=== PATIENT | female | born 1955 | race African-American/Black ===

== ENCOUNTER 2021-05-09 21:53 | Inpatient (IN) | payer MEDICARE, MEDICAID ==
[~2021-05-09 21:53] MED LIST: Heparin 1,000 UNITS/ML VIAL ONE
[2021-05-10 02:43] VITALS: BMI 39.4
[2021-05-10] MEDS ORDERED: Ondansetron PF 4 MG/2 ML Vial IVP PRN (03:35)
[2021-05-10] MEDS ORDERED: hydrALAZINE 20 MG/ML VIAL SLOW IVP PRN (03:42)
[2021-05-10] MEDS ORDERED: Morphine 4 MG/ML VIAL SLOW IVP PRN (03:43)
[2021-05-10] MEDS ORDERED: Vancomycin 1 GM in Premix Bag 1 BAG IVPB SCH (04:15)
[2021-05-10] MEDS ORDERED: Cefepime 2 GM in Sodium Chloride 0.9% 100 ML IVPB SCH (04:15)
[2021-05-10] MEDS: Nicotine 21 MG PATCH TD SCH (04:25)
[2021-05-10] MEDS: Sodium Chloride 0.9% 1,000 ML IV SCH ×3 (04:25→23:54)
[2021-05-10] MEDS: Morphine 4 MG/ML VIAL SLOW IVP PRN ×7 (04:26→20:20)
[2021-05-10 05:23] LABS: INR-International Normal Ratio 1.1; Prothrombin Time 14.5 sec (12.0-14.7)
[2021-05-10 05:25] LABS: Band 10 % (5-11); Hypochromia SLIGHT = 6-15 cells (100X) (0-5/hpf); Lymphocytes 9 % (21-51); MDiff Complete? YES; Mean Corpuscular HGB CONC 28.7 g/dL (32.0-36.0); Mean Corpuscular Hemoglobin 23.3 pg (27.0-31.0); Mean Platelet Volume 8.3 fL (7.4-10.4); Monocytes 4 % (0-10); Neutrophil 77 % (42-75); Platelet Count 204 thou/uL (130-400); Platelet Morphology Comment Appears Adequate; Red Blood Cell (RBC) Count 3.45 mill/uL (4.20-5.40); White Blood Cell (WBC) Count 25.9 thou/uL (4.8-10.8)
[2021-05-10 05:28] LABS: Hemoglobin A1c 5.1 % (4.0-6.0)
[2021-05-10 05:51] LABS: ALT (SGPT) Less than 7 U/L (8-55); AST (SGOT) 14 U/L (5-34); Albumin 3.1 g/dL (3.4-4.8); Alkaline Phosphatase 63 U/L (40-110); Anion Gap 11 mmol/L (10-20); BUN (Urea Nitrogen) 14 mg/dL (9.8-20.1); Bilirubin, Total 0.3 mg/dL (0.2-1.2); CRP (Inflammatory) 16.43 mg/dL (= or < 0.5); Calc. Creatinine Clearance 117 mL/min (70-130); Calcium 8.9 mg/dL (7.8-10.44); Carbon Dioxide 28 mmol/L (23-31); Cardiac Risk 2.1 (Less than 4.5); Chloride 106 mmol/L (98-107); Cholesterol 150 mg/dl (< 200 Desired); Globulin 3.3 g/dL (2.4-3.5); Glucose 86 mg/dL (80-115); HDL Cholesterol 72 mg/dL (>60 Neg Risk); LDL Cholesterol, Calculated 68 mg/dL; Potassium 3.5 mmol/L (3.5-5.1); Protein, Total 6.4 g/dL (5.8-8.1); Sodium 141 mmol/L (136-145); Triglycerides 49 mg/dL (Less than 150)
[2021-05-10] MEDS: Famotidine/PF 20 mg/2ml Vial SLOW IVP SCH ×2 (08:14→20:13)
[2021-05-10] MEDS ORDERED: Diazepam 5 MG TAB PO PRN (08:22)
[2021-05-10] MEDS ORDERED: FLU VACC QS2021-22(65YR UP)/PF 240 MCG/0.7 ML SYRINGE IM ONE (09:00)
[2021-05-10] MEDS ORDERED: Magnevist 469MG/ML 20 ML VIAL ONE (11:45)
[2021-05-10] MEDS ORDERED: Ibuprofen 800 MG TAB PO PRN (14:50)
[2021-05-10] MEDS: Gabapentin 300 MG CAP PO SCH ×2 (15:18→20:13)
[2021-05-10] MEDS: metroNIDAZOLE 500 MG in Premix Bag 1 BAG IVPB SCH ×2 (15:18→23:52)
[2021-05-10] MEDS: HYDROcodone/Acetaminophen 7.5/325 mg Tablet PO PRN (16:50)
[2021-05-10] MEDS: Cefepime 2 GM in Sodium Chloride 0.9% 100 ML IVPB SCH (16:51)
[2021-05-10] MEDS: VANCOMYCIN 2 GRAM/400 ML BAG 2 GM in Premix Bag 1 BAG IVPB SCH (18:48)
[2021-05-10] MEDS: tiZANidine HCl 4 MG TAB PO SCH (20:14)
[2021-05-11] MEDS: HYDROcodone/Acetaminophen 7.5/325 mg Tablet PO PRN ×3 (03:48→20:03)
[2021-05-11] MEDS: Nicotine 21 MG PATCH TD SCH (03:51)
[2021-05-11] MEDS: Cefepime 2 GM in Sodium Chloride 0.9% 100 ML IVPB SCH ×2 (04:35→17:44)
[2021-05-11] MEDS: Morphine 4 MG/ML VIAL SLOW IVP PRN ×3 (06:50→14:34)
[2021-05-11] MEDS: metroNIDAZOLE 500 MG in Premix Bag 1 BAG IVPB SCH ×3 (08:00→23:33)
[2021-05-11] MEDS: tiZANidine HCl 4 MG TAB PO SCH ×3 (08:02→20:08)
[2021-05-11] MEDS: Amlodipine 5 MG TAB PO SCH (08:02)
[2021-05-11] MEDS: Gabapentin 300 MG CAP PO SCH ×3 (08:02→20:00)
[2021-05-11] MEDS: Famotidine/PF 20 mg/2ml Vial SLOW IVP SCH ×2 (08:03→20:03)
[2021-05-11] MEDS ORDERED: Bisacodyl 5 MG TAB PO PRN (10:38)
[2021-05-11] MEDS ORDERED: Polyethylene Glycol 3350 17 GM Packet PO PRN (10:38)
[2021-05-11] MEDS ORDERED: Milk Of Magnesia 30 ML UDCUP PO PRN (10:38)
[2021-05-11] MEDS ORDERED: Promethazine HCl 12.5 MG in Sodium Chloride 0.9% 50 ML IVPB SCH (10:45)
[2021-05-11] MEDS ORDERED: Enoxaparin Sodium 40 MG/0.4 ML SYRINGE SC SCH (10:45)
[2021-05-11] MEDS ORDERED: Docusate 100 MG CAP PO SCH (11:00)
[2021-05-11] MEDS: Docusate 100 MG CAP PO SCH (11:04)
[2021-05-11] MEDS: Hydroxychloroquine Sulfate 200 MG TAB PO SCH (11:04)
[2021-05-11] MEDS: Senokot S 8.6-50 MG TAB PO SCH ×2 (11:04→20:03)
[2021-05-11] MEDS: Ibuprofen 800 MG TAB PO PRN (18:22)
[2021-05-11] MEDS: VANCOMYCIN 2 GRAM/400 ML BAG 2 GM in Premix Bag 1 BAG IVPB SCH (18:22)
[2021-05-11 18:24] LABS: Vancomycin, Trough 15.1 ug/mL
[2021-05-11] MEDS: Promethazine 25 MG TAB PO PRN (20:01)
[2021-05-11] MEDS: Sodium Chloride 0.9% 1,000 ML IV SCH (20:38)
[2021-05-12] MEDS: Nicotine 21 MG PATCH TD SCH ×2 (04:57→05:07)
[2021-05-12] MEDS: Cefepime 2 GM in Sodium Chloride 0.9% 100 ML IVPB SCH ×2 (04:57→05:07)
[2021-05-12] MEDS: Morphine 4 MG/ML VIAL SLOW IVP PRN ×2 (05:35→10:32)
[2021-05-12] MEDS: Promethazine 25 MG TAB PO PRN (05:40)
[2021-05-12] MEDS: Gabapentin 300 MG CAP PO SCH ×3 (08:21→20:15)
[2021-05-12] MEDS: Famotidine/PF 20 mg/2ml Vial SLOW IVP SCH ×2 (08:21→20:16)
[2021-05-12] MEDS: Docusate 100 MG CAP PO SCH ×2 (08:22→20:16)
[2021-05-12] MEDS: Senokot S 8.6-50 MG TAB PO SCH ×2 (08:22→20:16)
[2021-05-12] MEDS: tiZANidine HCl 4 MG TAB PO SCH ×2 (08:22→20:16)
[2021-05-12] MEDS: Amlodipine 5 MG TAB PO SCH (08:22)
[2021-05-12] MEDS: Hydroxychloroquine Sulfate 200 MG TAB PO SCH (08:22)
[2021-05-12] MEDS: Enoxaparin Sodium 40 MG/0.4 ML SYRINGE SC SCH (08:26)
[2021-05-12] MEDS: Sodium Chloride 0.9% 1,000 ML IV SCH (09:32)
[2021-05-12] MEDS: metroNIDAZOLE 500 MG in Premix Bag 1 BAG IVPB SCH ×2 (09:33→15:42)
[2021-05-12 11:38] LABS: Anion Gap 10 mmol/L (10-20); BUN (Urea Nitrogen) 12 mg/dL (9.8-20.1); Calc. Creatinine Clearance 132 mL/min (70-130); Carbon Dioxide 25 mmol/L (23-31); Chloride 106 mmol/L (98-107); Glucose 79 mg/dL (80-115); Potassium 3.5 mmol/L (3.5-5.1); Sodium 137 mmol/L (136-145)
[2021-05-12 11:57] LABS: Anisocytosis SLIGHT = 6-15 cells (100X) (0-5/hpf); Band 4 % (5-11); Eosinophils 3 % (0-10); Hemoglobin 7.1 g/dL (12.0-16.0); Lymphocytes 16 % (21-51); MDiff Complete? YES; Mean Corpuscular HGB CONC 28.7 g/dL (32.0-36.0); Mean Corpuscular Hemoglobin 23.1 pg (27.0-31.0); Mean Corpuscular Volume 80.7 fL (78.0-98.0); Mean Platelet Volume 8.8 fL (7.4-10.4); Monocytes 10 % (0-10); Neutrophil 67 % (42-75); Platelet Count 163 thou/uL (130-400); RBC Distribution Width 18.4 % (11.5-14.5); Red Blood Cell (RBC) Count 3.07 mill/uL (4.20-5.40); White Blood Cell (WBC) Count 11.3 thou/uL (4.8-10.8)
[2021-05-12] MEDS: HYDROcodone/Acetaminophen 7.5/325 mg Tablet PO PRN (14:12)
[2021-05-12] MEDS: VANCOMYCIN 2 GRAM/400 ML BAG 2 GM in Premix Bag 1 BAG IVPB SCH (17:33)
[2021-05-13] MEDS: metroNIDAZOLE 500 MG in Premix Bag 1 BAG IVPB SCH ×3 (00:13→15:15)
[2021-05-13] MEDS: HYDROcodone/Acetaminophen 7.5/325 mg Tablet PO PRN ×3 (01:51→16:38)
[2021-05-13] MEDS: Sodium Chloride 0.9% 1,000 ML IV SCH ×2 (01:52→15:16)
[2021-05-13] MEDS: Morphine 4 MG/ML VIAL SLOW IVP PRN ×2 (03:18→12:10)
[2021-05-13] MEDS: Cefepime 2 GM in Sodium Chloride 0.9% 100 ML IVPB SCH ×2 (06:22→16:40)
[2021-05-13] MEDS: Saccharomyces boulardii 250 MG CAP PO SCH (09:06)
[2021-05-13] MEDS: Gabapentin 300 MG CAP PO SCH ×3 (09:06→20:49)
[2021-05-13] MEDS: Amlodipine 5 MG TAB PO SCH (09:06)
[2021-05-13] MEDS: tiZANidine HCl 4 MG TAB PO SCH ×2 (09:07→20:49)
[2021-05-13] MEDS: Enoxaparin Sodium 40 MG/0.4 ML SYRINGE SC SCH (09:07)
[2021-05-13] MEDS: Famotidine/PF 20 mg/2ml Vial SLOW IVP SCH ×2 (09:23→20:51)
[2021-05-13] MEDS: Senokot S 8.6-50 MG TAB PO SCH ×2 (10:13→20:50)
[2021-05-13] MEDS: Docusate 100 MG CAP PO SCH ×2 (10:13→20:50)
[2021-05-13] MEDS: Hydroxychloroquine Sulfate 200 MG TAB PO SCH (13:50)
[2021-05-13] MEDS: Ibuprofen 800 MG TAB PO PRN (13:54)
[2021-05-13 17:28] LABS: Calc. Creatinine Clearance 138 mL/min (70-130)
[2021-05-13 17:29] LABS: Vancomycin, Trough 13.9 ug/mL
[2021-05-13] MEDS: diphenhydrAMINE 25 MG CAP PO PRN (18:05)
[2021-05-13] MEDS: Vancomycin 1 GM in Premix Bag 1 BAG IVPB SCH (18:11)
[2021-05-13] MEDS: Promethazine 25 MG TAB PO PRN (21:16)
[2021-05-14] MEDS: metroNIDAZOLE 500 MG in Premix Bag 1 BAG IVPB SCH ×4 (00:19→23:41)
[2021-05-14] MEDS: Sodium Chloride 0.9% 1,000 ML IV SCH ×2 (01:30→15:29)
[2021-05-14] MEDS: Morphine 4 MG/ML VIAL SLOW IVP PRN ×4 (01:47→19:51)
[2021-05-14] MEDS: HYDROcodone/Acetaminophen 7.5/325 mg Tablet PO PRN (06:08)
[2021-05-14] MEDS: Promethazine 25 MG TAB PO PRN ×2 (06:14→23:41)
[2021-05-14] MEDS: Nicotine 21 MG PATCH TD SCH (06:17)
[2021-05-14 06:29] LABS: Hemoglobin 7.6 g/dL (12.0-16.0); Mean Corpuscular HGB CONC 30.1 g/dL (32.0-36.0); Mean Corpuscular Hemoglobin 23.8 pg (27.0-31.0); Mean Corpuscular Volume 79.2 fL (78.0-98.0); Mean Platelet Volume 9.4 fL (7.4-10.4); Platelet Count 215 thou/uL (130-400); RBC Distribution Width 18.6 % (11.5-14.5); Red Blood Cell (RBC) Count 3.18 mill/uL (4.20-5.40); White Blood Cell (WBC) Count 11.4 thou/uL (4.8-10.8)
[2021-05-14 06:42] LABS: Anion Gap 9 mmol/L (10-20); BUN (Urea Nitrogen) 6 mg/dL (9.8-20.1); Calc. Creatinine Clearance 152 mL/min (70-130); Calcium 8.4 mg/dL (7.8-10.44); Carbon Dioxide 27 mmol/L (23-31); Chloride 105 mmol/L (98-107); Glucose 82 mg/dL (80-115); Potassium 3.3 mmol/L (3.5-5.1); Sodium 138 mmol/L (136-145)
[2021-05-14] MEDS: Cefepime 2 GM in Sodium Chloride 0.9% 100 ML IVPB SCH ×2 (06:43→17:09)
[2021-05-14] MEDS: Vancomycin 1 GM in Premix Bag 1 BAG IVPB SCH ×2 (07:23→18:09)
[2021-05-14] MEDS: diphenhydrAMINE 25 MG CAP PO PRN (07:23)
[2021-05-14 08:44] LABS: Band 4 % (5-11); Eosinophils 3 % (0-10); Hypochromia SLIGHT = 6-15 cells (100X) (0-5/hpf); Lymphocytes 19 % (21-51); MDiff Complete? YES; Microcytosis SLIGHT = 6-15 cells (100X) (0-5/hpf); Monocytes 10 % (0-10); Neutrophil 62 % (42-75); Platelet Morphology Comment Appears Adequate; Polychromasia SLIGHT = 2-3 cells (100X) (0-2/hpf); Reactive Lymphocytes 1 % (0-10)
[2021-05-14] MEDS: Gabapentin 300 MG CAP PO SCH ×4 (09:25→19:53)
[2021-05-14] MEDS: Enoxaparin Sodium 40 MG/0.4 ML SYRINGE SC SCH (09:25)
[2021-05-14] MEDS: tiZANidine HCl 4 MG TAB PO SCH ×2 (09:26→19:52)
[2021-05-14] MEDS: Amlodipine 5 MG TAB PO SCH (09:26)
[2021-05-14] MEDS: Saccharomyces boulardii 250 MG CAP PO SCH (09:26)
[2021-05-14] MEDS: Famotidine/PF 20 mg/2ml Vial SLOW IVP SCH ×2 (09:27→19:52)
[2021-05-14] MEDS: Hydroxychloroquine Sulfate 200 MG TAB PO SCH (09:31)
[2021-05-14] MEDS: Docusate 100 MG CAP PO SCH ×2 (09:35→19:52)
[2021-05-14] MEDS: Senokot S 8.6-50 MG TAB PO SCH ×2 (09:35→19:52)
[2021-05-14 10:09] LABS: Iron Binding Capacity, Total 244 mcg/dL (265-497)
[2021-05-14 10:10] LABS: Iron 26 ug/dL (50-170)
[2021-05-15] MEDS: Sodium Chloride 0.9% 1,000 ML IV SCH (03:45)
[2021-05-15] MEDS: Nicotine 21 MG PATCH TD SCH (05:13)
[2021-05-15] MEDS: Cefepime 2 GM in Sodium Chloride 0.9% 100 ML IVPB SCH ×2 (05:14→16:56)
[2021-05-15 05:38] LABS: Vancomycin, Trough 14.4 ug/mL
[2021-05-15] MEDS: Vancomycin 1 GM in Premix Bag 1 BAG IVPB SCH ×2 (05:57→17:02)
[2021-05-15] MEDS: Promethazine 25 MG TAB PO PRN (06:07)
[2021-05-15] MEDS ORDERED: Potassium Chloride 20 MEQ TAB PO SCH (07:45)
[2021-05-15] MEDS: Famotidine/PF 20 mg/2ml Vial SLOW IVP SCH ×2 (09:12→20:37)
[2021-05-15] MEDS: Senokot S 8.6-50 MG TAB PO SCH ×2 (09:12→20:36)
[2021-05-15] MEDS: tiZANidine HCl 4 MG TAB PO SCH ×2 (09:12→20:36)
[2021-05-15] MEDS: Docusate 100 MG CAP PO SCH ×2 (09:13→20:36)
[2021-05-15] MEDS: Gabapentin 300 MG CAP PO SCH ×3 (09:13→20:36)
[2021-05-15] MEDS: HYDROcodone/Acetaminophen 7.5/325 mg Tablet PO PRN ×2 (09:14→15:17)
[2021-05-15] MEDS: Saccharomyces boulardii 250 MG CAP PO SCH (09:15)
[2021-05-15] MEDS: metroNIDAZOLE 500 MG in Premix Bag 1 BAG IVPB SCH (09:15)
[2021-05-15] MEDS: Amlodipine 5 MG TAB PO SCH (09:16)
[2021-05-15] MEDS: Enoxaparin Sodium 40 MG/0.4 ML SYRINGE SC SCH (09:16)
[2021-05-15] MEDS: Hydroxychloroquine Sulfate 200 MG TAB PO SCH (10:31)
[2021-05-15] MEDS: diphenhydrAMINE 25 MG CAP PO PRN (17:02)
[2021-05-15] MEDS: Chloraseptic Spray 180 ml Bottle PO PRN (23:01)
[2021-05-16] MEDS: Nicotine 21 MG PATCH TD SCH (00:01)
[2021-05-16] MEDS: Morphine 4 MG/ML VIAL SLOW IVP PRN ×2 (01:32→15:54)
[2021-05-16] MEDS: Cefepime 2 GM in Sodium Chloride 0.9% 100 ML IVPB SCH ×2 (03:55→16:24)
[2021-05-16] MEDS: Vancomycin 1 GM in Premix Bag 1 BAG IVPB SCH (05:34)
[2021-05-16 06:17] LABS: #Basophils 0.1 thou/uL (0.0-0.2); #Eosinphils 0.5 thou/uL (0.0-0.7); #Neutrophils 7.7 thou/uL (1.40-6.50); %Basophils 0.8 % (0.0-1.0); %Eosinophils 4.3 % (0.0-10.0); %Lymphocytes 17.8 % (21.0-51.0); %Monocytes 8.8 % (0.0-10.0); %Neutrophils 68.3 % (42.0-75.0); Hemoglobin 7.6 g/dL (12.0-16.0); Mean Corpuscular HGB CONC 30.3 g/dL (32.0-36.0); Mean Corpuscular Hemoglobin 23.7 pg (27.0-31.0); Mean Corpuscular Volume 78.2 fL (78.0-98.0); Mean Platelet Volume 8.2 fL (7.4-10.4); Platelet Count 343 thou/uL (130-400); RBC Distribution Width 19.5 % (11.5-14.5); Red Blood Cell (RBC) Count 3.21 mill/uL (4.20-5.40); White Blood Cell (WBC) Count 11.2 thou/uL (4.8-10.8)
[2021-05-16 06:30] LABS: Anion Gap 13 mmol/L (10-20); BUN (Urea Nitrogen) 6 mg/dL (9.8-20.1); Calc. Creatinine Clearance 142 mL/min (70-130); Carbon Dioxide 25 mmol/L (23-31); Chloride 106 mmol/L (98-107); Glucose 84 mg/dL (80-115); Potassium 3.5 mmol/L (3.5-5.1); Sodium 140 mmol/L (136-145)
[2021-05-16 06:31] LABS: Calcium 8.6 mg/dL (7.8-10.44)
[2021-05-16] MEDS: Saccharomyces boulardii 250 MG CAP PO SCH (08:23)
[2021-05-16] MEDS: Promethazine 25 MG TAB PO PRN (08:23)
[2021-05-16] MEDS: Senokot S 8.6-50 MG TAB PO SCH ×2 (08:23→20:41)
[2021-05-16] MEDS: tiZANidine HCl 4 MG TAB PO SCH ×2 (08:23→20:41)
[2021-05-16] MEDS: Gabapentin 300 MG CAP PO SCH ×3 (08:23→20:41)
[2021-05-16] MEDS: Enoxaparin Sodium 40 MG/0.4 ML SYRINGE SC SCH (08:24)
[2021-05-16] MEDS: Famotidine/PF 20 mg/2ml Vial SLOW IVP SCH ×2 (08:24→20:40)
[2021-05-16] MEDS: Docusate 100 MG CAP PO SCH ×2 (08:24→20:42)
[2021-05-16] MEDS: Hydroxychloroquine Sulfate 200 MG TAB PO SCH (08:24)
[2021-05-16] MEDS: Amlodipine 5 MG TAB PO SCH ×2 (08:24→18:21)
[2021-05-16] MEDS: Chloraseptic Spray 180 ml Bottle PO PRN (08:29)
[2021-05-16] MEDS: HYDROcodone/Acetaminophen 7.5/325 mg Tablet PO PRN (12:56)
[2021-05-16 17:15] LABS: Vancomycin, Trough 14.8 ug/mL
[2021-05-16] MEDS: VANCOMYCIN 1.25 GM/250 ML BAG 1.25 GM in Premix Bag 1 BAG IVPB SCH (18:04)
[2021-05-16] MEDS: ALPRAZolam 0.25 MG TAB PO PRN (20:40)
[2021-05-16 23:43] LABS: SARS-CoV-2 PCR by NAA Not Detected (NotDetected)
[2021-05-17] MEDS: Nicotine 21 MG PATCH TD SCH (04:09)
[2021-05-17] MEDS: Cefepime 2 GM in Sodium Chloride 0.9% 100 ML IVPB SCH ×2 (04:36→17:26)
[2021-05-17] MEDS: HYDROcodone/Acetaminophen 7.5/325 mg Tablet PO PRN ×2 (04:46→15:47)
[2021-05-17] MEDS: VANCOMYCIN 1.25 GM/250 ML BAG 1.25 GM in Premix Bag 1 BAG IVPB SCH ×2 (05:33→18:11)
[2021-05-17] MEDS: Promethazine 25 MG TAB PO PRN (08:07)
[2021-05-17] MEDS: Gabapentin 300 MG CAP PO SCH ×3 (09:45→20:59)
[2021-05-17] MEDS: Enoxaparin Sodium 40 MG/0.4 ML SYRINGE SC SCH (09:46)
[2021-05-17] MEDS: Docusate 100 MG CAP PO SCH ×2 (09:46→20:59)
[2021-05-17] MEDS: tiZANidine HCl 4 MG TAB PO SCH ×2 (09:47→20:58)
[2021-05-17] MEDS: Amlodipine 5 MG TAB PO SCH (09:47)
[2021-05-17] MEDS: Saccharomyces boulardii 250 MG CAP PO SCH (09:47)
[2021-05-17] MEDS: Senokot S 8.6-50 MG TAB PO SCH ×2 (09:47→20:59)
[2021-05-17] MEDS: Famotidine/PF 20 mg/2ml Vial SLOW IVP SCH ×2 (09:48→20:58)
[2021-05-17] MEDS: Hydroxychloroquine Sulfate 200 MG TAB PO SCH (09:48)
[2021-05-17] MEDS: Ibuprofen 800 MG TAB PO PRN (09:54)
[2021-05-17] MEDS: diphenhydrAMINE 25 MG CAP PO PRN (17:34)
[2021-05-17] MEDS: Acetaminophen/Codeine 30-300mg Tablet PO PRN (18:53)
[2021-05-17] MEDS: ALPRAZolam 0.25 MG TAB PO PRN (21:05)
[2021-05-18] MEDS: Acetaminophen/Codeine 30-300mg Tablet PO PRN (00:58)
[2021-05-18] MEDS: HYDROcodone/Acetaminophen 7.5/325 mg Tablet PO PRN ×3 (01:02→20:57)
[2021-05-18 04:14] LABS: Vancomycin, Trough 26.8 ug/mL
[2021-05-18] MEDS: Nicotine 21 MG PATCH TD SCH (04:45)
[2021-05-18] MEDS: Cefepime 2 GM in Sodium Chloride 0.9% 100 ML IVPB SCH ×2 (04:53→17:27)
[2021-05-18] MEDS: Vancomycin 1 GM in Premix Bag 1 BAG IVPB SCH ×2 (05:26→18:03)
[2021-05-18] MEDS: Hydroxychloroquine Sulfate 200 MG TAB PO SCH (09:01)
[2021-05-18] MEDS: tiZANidine HCl 4 MG TAB PO SCH ×2 (09:01→20:45)
[2021-05-18] MEDS: Saccharomyces boulardii 250 MG CAP PO SCH (09:01)
[2021-05-18] MEDS: Famotidine/PF 20 mg/2ml Vial SLOW IVP SCH ×2 (09:01→20:45)
[2021-05-18] MEDS: Amlodipine 5 MG TAB PO SCH (09:01)
[2021-05-18] MEDS: Enoxaparin Sodium 40 MG/0.4 ML SYRINGE SC SCH (09:01)
[2021-05-18] MEDS: Gabapentin 300 MG CAP PO SCH ×3 (09:02→20:45)
[2021-05-18] MEDS: Docusate 100 MG CAP PO SCH ×2 (09:02→20:45)
[2021-05-18] MEDS: Senokot S 8.6-50 MG TAB PO SCH ×2 (09:02→20:45)
[2021-05-18] MEDS: diphenhydrAMINE 25 MG CAP PO PRN (12:02)
[2021-05-18] MEDS: Promethazine 25 MG TAB PO PRN (12:02)
[2021-05-18] MEDS: Ibuprofen 800 MG TAB PO PRN (14:12)
[2021-05-18] MEDS: ALPRAZolam 0.25 MG TAB PO PRN (20:50)
[2021-05-19] MEDS: HYDROcodone/Acetaminophen 7.5/325 mg Tablet PO PRN ×3 (02:21→20:59)
[2021-05-19] MEDS: Nicotine 21 MG PATCH TD SCH (04:32)
[2021-05-19] MEDS: Cefepime 2 GM in Sodium Chloride 0.9% 100 ML IVPB SCH ×2 (04:32→17:30)
[2021-05-19] MEDS: Vancomycin 1 GM in Premix Bag 1 BAG IVPB SCH ×2 (05:51→17:41)
[2021-05-19] MEDS: diphenhydrAMINE 25 MG CAP PO PRN (05:57)
[2021-05-19] MEDS: tiZANidine HCl 4 MG TAB PO SCH ×2 (09:01→20:55)
[2021-05-19] MEDS: Gabapentin 300 MG CAP PO SCH ×3 (09:01→20:56)
[2021-05-19] MEDS: Hydroxychloroquine Sulfate 200 MG TAB PO SCH (09:01)
[2021-05-19] MEDS: Senokot S 8.6-50 MG TAB PO SCH ×2 (09:01→20:55)
[2021-05-19] MEDS: Docusate 100 MG CAP PO SCH ×2 (09:03→20:55)
[2021-05-19] MEDS: Amlodipine 5 MG TAB PO SCH (09:03)
[2021-05-19] MEDS: Famotidine/PF 20 mg/2ml Vial SLOW IVP SCH (09:03)
[2021-05-19] MEDS: Enoxaparin Sodium 40 MG/0.4 ML SYRINGE SC SCH (09:04)
[2021-05-19] MEDS: Saccharomyces boulardii 250 MG CAP PO SCH (09:04)
[2021-05-19] MEDS: Morphine 4 MG/ML VIAL SLOW IVP PRN (12:22)
[2021-05-19] MEDS: Promethazine 25 MG TAB PO PRN (15:09)
[2021-05-19 17:25] LABS: Vancomycin, Trough 23.6 ug/mL
[2021-05-19] MEDS: Ferrous Sulfate 325 MG TAB PO SCH (17:29)
[2021-05-19] MEDS: Famotidine 20 MG TAB PO SCH (20:55)
[2021-05-19] MEDS: ALPRAZolam 0.25 MG TAB PO PRN (20:59)
[2021-05-20] MEDS: HYDROcodone/Acetaminophen 7.5/325 mg Tablet PO PRN ×3 (03:13→16:29)
[2021-05-20] MEDS: Ibuprofen 800 MG TAB PO PRN (03:19)
[2021-05-20] MEDS: ALPRAZolam 0.25 MG TAB PO PRN ×3 (03:20→20:09)
[2021-05-20] MEDS: Nicotine 21 MG PATCH TD SCH (04:02)
[2021-05-20] MEDS: Cefepime 2 GM in Sodium Chloride 0.9% 100 ML IVPB SCH ×2 (05:28→16:30)
[2021-05-20] MEDS: Vancomycin HCl 750 MG in Sodium Chloride 0.9% 250 ML 250 ML IVPB SCH ×2 (05:28→17:22)
[2021-05-20] MEDS: Gabapentin 300 MG CAP PO SCH ×3 (08:22→20:08)
[2021-05-20] MEDS: tiZANidine HCl 4 MG TAB PO SCH ×2 (08:22→20:08)
[2021-05-20] MEDS: Senokot S 8.6-50 MG TAB PO SCH ×2 (08:22→20:08)
[2021-05-20] MEDS: Docusate 100 MG CAP PO SCH ×2 (08:22→21:46)
[2021-05-20] MEDS: Amlodipine 5 MG TAB PO SCH (08:24)
[2021-05-20] MEDS: Ferrous Sulfate 325 MG TAB PO SCH ×2 (08:24→16:27)
[2021-05-20] MEDS: Saccharomyces boulardii 250 MG CAP PO SCH (08:24)
[2021-05-20] MEDS: Famotidine 20 MG TAB PO SCH ×2 (08:24→20:07)
[2021-05-20] MEDS: Enoxaparin Sodium 40 MG/0.4 ML SYRINGE SC SCH (08:25)
[2021-05-20] MEDS: Hydroxychloroquine Sulfate 200 MG TAB PO SCH (10:18)
[2021-05-20] MEDS: Promethazine 25 MG TAB PO PRN (16:28)
[2021-05-20] MEDS: diphenhydrAMINE 25 MG CAP PO PRN (16:32)
[2021-05-21] MEDS: HYDROcodone/Acetaminophen 7.5/325 mg Tablet PO PRN ×4 (02:30→20:32)
[2021-05-21] MEDS: Nicotine 21 MG PATCH TD SCH (03:49)
[2021-05-21] MEDS: Cefepime 2 GM in Sodium Chloride 0.9% 100 ML IVPB SCH ×2 (05:37→16:51)
[2021-05-21] MEDS: diphenhydrAMINE 25 MG CAP PO PRN (05:49)
[2021-05-21] MEDS: Vancomycin HCl 750 MG in Sodium Chloride 0.9% 250 ML 250 ML IVPB SCH ×2 (06:19→17:57)
[2021-05-21] MEDS: Ferrous Sulfate 325 MG TAB PO SCH ×2 (07:32→16:51)
[2021-05-21] MEDS: Famotidine 20 MG TAB PO SCH ×2 (07:32→19:58)
[2021-05-21] MEDS: Amlodipine 5 MG TAB PO SCH (07:33)
[2021-05-21] MEDS: Docusate 100 MG CAP PO SCH ×2 (07:33→19:58)
[2021-05-21] MEDS: Gabapentin 300 MG CAP PO SCH ×3 (07:33→19:57)
[2021-05-21] MEDS: Senokot S 8.6-50 MG TAB PO SCH ×2 (07:33→19:58)
[2021-05-21] MEDS: Saccharomyces boulardii 250 MG CAP PO SCH (07:33)
[2021-05-21] MEDS: tiZANidine HCl 4 MG TAB PO SCH ×2 (07:34→19:58)
[2021-05-21] MEDS: Enoxaparin Sodium 40 MG/0.4 ML SYRINGE SC SCH (07:34)
[2021-05-21] MEDS: Hydroxychloroquine Sulfate 200 MG TAB PO SCH (11:52)
[2021-05-21] MEDS: Acetaminophen/Codeine 30-300mg Tablet PO PRN (12:23)
[2021-05-21 18:13] LABS: Vancomycin, Trough 20.9 ug/mL
[2021-05-21] MEDS: ALPRAZolam 0.25 MG TAB PO PRN (19:58)
[2021-05-22] MEDS: Nicotine 21 MG PATCH TD SCH (02:55)
[2021-05-22] MEDS: HYDROcodone/Acetaminophen 7.5/325 mg Tablet PO PRN ×2 (03:35→08:32)
[2021-05-22] MEDS: diphenhydrAMINE 25 MG CAP PO PRN (03:38)
[2021-05-22] MEDS: Cefepime 2 GM in Sodium Chloride 0.9% 100 ML IVPB SCH (04:59)
[2021-05-22] MEDS: Vancomycin HCl 750 MG in Sodium Chloride 0.9% 250 ML 250 ML IVPB SCH (05:32)
[2021-05-22] MEDS: Promethazine 25 MG TAB PO PRN ×2 (05:51→11:48)
[2021-05-22 07:52] VITALS: BP 150/80; TEMP 98.5
[2021-05-22] MEDS: Docusate 100 MG CAP PO SCH (08:33)
[2021-05-22] MEDS: Ferrous Sulfate 325 MG TAB PO SCH (08:34)
[2021-05-22] MEDS: tiZANidine HCl 4 MG TAB PO SCH (08:34)
[2021-05-22] MEDS: Gabapentin 300 MG CAP PO SCH (09:21)
[2021-05-22] MEDS: Saccharomyces boulardii 250 MG CAP PO SCH (09:21)
[2021-05-22] MEDS: Famotidine 20 MG TAB PO SCH (09:22)
[2021-05-22] MEDS: Amlodipine 5 MG TAB PO SCH (09:22)
[2021-05-22] MEDS: Hydroxychloroquine Sulfate 200 MG TAB PO SCH (09:23)
[2021-05-22] MEDS: Senokot S 8.6-50 MG TAB PO SCH (09:23)
[2021-05-22] MEDS: Enoxaparin Sodium 40 MG/0.4 ML SYRINGE SC SCH (09:23)
[2021-05-22] MEDS: Ibuprofen 800 MG TAB PO PRN (11:41)
[2021-05-22] MEDS: Acetaminophen/Codeine 30-300mg Tablet PO PRN (11:42)
== END 2021-05-22 13:30 | disposition home or self-care (01) | DRG 867 ==
LOC: SJJU 21:53
PROVIDERS: ADMIT Internal Medicine; ATTEND Family Medicine
PROC: 02HV33Z Insertion of Infusion Device into Superior Vena Cava, Percutaneous Approach (ICD-10-PCS; principal; 2021-05-14)
PROC: B548ZZA Ultrasonography of Superior Vena Cava, Guidance (ICD-10-PCS; 2021-05-14)
DX: T80.29XA Infection following other infusion, transfusion and therapeutic injection, initial encounter (principal); G06.1 Intraspinal abscess and granuloma; I10 Essential (primary) hypertension; M32.9 Systemic lupus erythematosus, unspecified; D50.9 Iron deficiency anemia, unspecified; F17.210 Nicotine dependence, cigarettes, uncomplicated; Z20.822 Contact with and (suspected) exposure to COVID-19; M48.061 Spinal stenosis, lumbar region without neurogenic claudication; M48.07 Spinal stenosis, lumbosacral region; Z90.711 Acquired absence of uterus with remaining cervical stump; Z98.890 Other specified postprocedural states; Z98.84 Bariatric surgery status; Z91.018 Allergy to other foods; Y82.8 Other medical devices associated with adverse incidents
CPT/HCPCS: 36415; 36569; 71045; 72131; 72158; 80048; 80053; 80061; 80202; 82565; 82728; 83036; 83540; 83550; 85025; 85610; 85652; 86140; 87040; 93005; 93010; 93970; A9579; C1751; J0692; J1644; J1650; J2270; J2550; J3370; J3490; J7050; Q0169; S0028; U0003; U0005